=== PATIENT | female | born 1945 | race Caucasian/White ===

== ENCOUNTER → 2016-10-25 | Outpatient (CLI) | payer BC ==
--- NOTE | 2016-10-26 12:32 | MAMMOGRAPHY REPORT ---
BILATERAL DIGITAL SCREENING MAMMOGRAM TOMOSYNTHESIS WITH CAD: 10/25/2016 CLINICAL HISTORY: Routine screening. Patient has no complaints. TECHNIQUE: Breast tomosynthesis in addition to standard 2D mammography was performed. Current study was also evaluated with a Computer Aided Detection (CAD) system. COMPARISON: Comparison is made to exams dated: 10/22/2015 mammogram, 10/21/2014 mammogram, 10/18/2013 ma mmogram, 10/13/2011 mammogram, 10/16/2012 mammogram, and 11/12/2010 ultrasound - [facility]. BREAST COMPOSITION: There are scattered areas of fibroglandular density in both breasts. FINDINGS: There are scattered and grouped benign-appearing microcalcifications, stable in each breas t. There is a stable metallic biopsy marker in the 2:00 anterior left breast. No new suspicious ma ss, architectural distortion or cluster of microcalcifications is seen. IMPRESSION: ACR BI-RADS CATEGORY 1: NEGATIVE There is no mammographic evidence of malignancy. A 1 year screening mammogram is recommended. The p atient will receive written notification of the results. Approximately 10% of breast cancers are not detected with mammography. A negative mammographic repor t should not delay biopsy if a clinically suggestive mass is present. Amber Corrales M.D. ay/:10/25/2016 16:00:20 Metal Shaping Machine Operator: Joelle ULRICH(Ruben)(Bhupinder), [facility] letter sent: Normal 1/2 BI-RADS Code: ACR BI-RADS Category 1: Negative
== END | disposition home or self-care (01) ==
LOC: C.MAMM 09:48
PROVIDERS: ATTEND Family Medicine
DX: Z12.31 Encounter for screening mammogram for malignant neoplasm of breast (principal)

== ENCOUNTER → 2016-11-15 | Outpatient (CLI) | payer BC ==
[2016-11-15 13:14] LABS: CHOLESTEROL/HDL RATIO 3.6
== END | disposition home or self-care (01) ==
LOC: C.LABMFLN 09:31
PROVIDERS: ATTEND Family Medicine
DX: E78.5 Hyperlipidemia, unspecified (principal)

== ENCOUNTER → 2017-10-27 | Outpatient (CLI) | payer BC ==
--- NOTE | 2017-10-27 15:27 | MAMMOGRAPHY REPORT ---
BILATERAL DIGITAL SCREENING MAMMOGRAM TOMOSYNTHESIS WITH CAD: 10/27/2017 CLINICAL HISTORY: Routine screening. Patient has no complaints. TECHNIQUE: Breast tomosynthesis in addition to standard 2D mammography was performed. Current study was also evaluated with a Computer Aided Detection (CAD) system. COMPARISON: Comparison is made to exams dated: 10/25/2016 mammogram, 10/22/2015 mammogram, 10/21/2014 mamm ogram, 10/18/2013 mammogram, 10/16/2012 mammogram, and 10/13/2011 mammogram - [facility] er. BREAST COMPOSITION: There are scattered areas of fibroglandular density in both breasts. FINDINGS: No suspicious masses, calcifications, or areas of architectural distortion are noted in ei ther breast. There has been no significant interval change compared to prior exams. Bilateral benign -appearing calcifications are not significantly changed. A biopsy marker clip is again noted within the left lateral anterior breast. IMPRESSION: ACR BI-RADS CATEGORY 2: BENIGN There is no mammographic evidence of malignancy. A 1 year screening mammogram is recommended. The pa tient will receive written notification of the results. Approximately 10% of breast cancers are not detected with mammography. A negative mammographic report should not delay biopsy if a clinically suggestive mass is present. Anjelica Laird M.D. ah/:10/27/2017 12:08:30 Turbo Electric Operator: Korina CASTANO)(M), [facility] letter sent: Normal 1/2 BI-RADS Code: ACR BI-RADS Category 2: Benign
== END | disposition home or self-care (01) ==
LOC: C.MAMM 10:03
PROVIDERS: ATTEND Family Medicine
DX: Z12.31 Encounter for screening mammogram for malignant neoplasm of breast (principal)

== ENCOUNTER 2024-05-24 09:18 | Inpatient (IN) ==
--- NOTE | 2024-05-03 15:45 | PAT Medication Instructions ---
Medication Instructions Date of Service May 03, 2024 Home Medications Medication Instructions Recorded rosuvastatin 20 mg tablet 20 mg PO QAM #90 tabs 09/19/23 carvedilol 25 mg tablet 25 mg PO BID #180 tabs 11/20/23 gabapentin 300 mg capsule 300 mg PO BID #60 caps 03/05/24 acetaminophen 500 mg tablet (Tylenol Extra Strength) 500 mg PO Q6H PRN Pain aspirin 81 mg capsule 81 mg PO BID rosuvastatin 20 mg tablet 20 mg PO QAM carvedilol 25 mg tablet 25 mg PO BID gabapentin 300 mg capsule 300 mg PO BID duloxetine 30 mg capsule,delayed release 30 mg PO QAM losartan 100 mg tablet 100 mg PO QAM ASK your prescriber and surgeon aspirin 81 mg capsule 81 mg PO BID DO NOT take the morning of surgery losartan 100 mg tablet 100 mg PO QAM Take morning of surgery With a small sip of water, OTHERWISE NOTHING TO EAT OR DRINK AFTER MIDNIGHT: acetaminophen 500 mg tablet (Tylenol Extra Strength) 500 mg PO Q6H PRN Pain (if needed) rosuvastatin 20 mg tablet 20 mg PO QAM carvedilol 25 mg tablet 25 mg PO BID gabapentin 300 mg capsule 300 mg PO BID duloxetine 30 mg capsule,delayed release 30 mg PO QAM Take evening before surgery acetaminophen 500 mg tablet (Tylenol Extra Strength) 500 mg PO Q6H PRN Pain (if needed) carvedilol 25 mg tablet 25 mg PO BID gabapentin 300 mg capsule 300 mg PO BID Other Notes If you have any questions please call us at [phone] or [phone] or [phone] or [phone]
--- NOTE | 2024-05-16 09:18 | Anesthesiology Consultation ---
Date of Service May 16, 2024 Assessment & Plan (1) Encounter for pre-operative examination: - cardiology clearance 05/09/24 [place]: "...Nonischemic cardiomyopathy: Secondary workup unremarkable (coronary angiography, TSH, iron studies, SPEP/UPEP, OTONIEL, Lyme). Euvolemic on exam. NYHA class I. LV systolic function has improved with beta-jean paul and ARB. Continue current regimen. OTONIEL inhibitor discontinued due to cough. Does not qualify for ICD for primary prevention. Recommended low- sodium diet. Monitor for signs and symptoms of heart failure which were discussed with her. Repeat echo in approximately 6 months. CAD: Minimal nonobstructive CAD in March 2023. No angina. Risk factor modification. Continue aspirin. Continue high intensity statin therapy. Mitral regurgitation: Nonsevere. Asymptomatic. Repeat echo in approximately 6 months...LBBB: Discussed diagnosis. May be responsible for her reduced LV systolic function...Follow-up in approximately 6 months or sooner for questions or concerns. Acceptable cardiovascular risk for upcoming surgery. No further testing necessary at this time from a cardiology perspective. Recommend caution with IV fluids and monitor for hypervolemia..." Chart Review Chart Review: Acceptable Risk for Surgery and Patient seen in Pre Admission Testing Teaching & Discussion Pre-Anesthesia Teaching/Discussion Notes: Instructed NPO after midnight before surgery, except medications with 15 cc of water. Medication instructions provided according to the PAT guidelines. History Surgery Operation Date: 05/24/24 11:15 Proposed Procedures p L4-L5 Lumbar Decompression and Fusion - Clarence Buckner DO Height/Weight Height: 5 ft 2 in Weight: 70.4 kg Allergies Allergy/AdvReac Type Severity Reaction Status Date / Time adhesive tape AdvReac Mild Rash Verified 05/09/24 14:43 Medications Home Medications Medication Instructions Recorded Confirmed Last Taken acetaminophen 500 mg tablet 500 mg PO Q6H PRN Pain 02/09/22 05/09/24 06/19/23 08:00 (Tylenol Extra Strength) aspirin 81 mg capsule 81 mg PO BID 05/09/23 05/09/24 06/19/23 08:00 rosuvastatin 20 mg tablet 20 mg PO QAM #90 tabs 09/19/23 05/09/24 Unknown carvedilol 25 mg tablet 25 mg PO BID #180 tabs 11/20/23 05/09/24 Unknown gabapentin 300 mg capsule 300 mg PO BID #60 caps 03/05/24 05/09/24 Unknown duloxetine 30 mg capsule,delayed 30 mg PO QAM 05/03/24 05/09/24 Unknown release losartan 100 mg tablet 100 mg PO QAM 05/03/24 05/09/24 Unknown Past Medical History Medical History (Updated 05/16/24 @ 13:57 by Remedios Recinos PA-C) CAD (coronary artery disease) minimal non-obstructive on 03/2023 cath Cervical radiculopathy Hearing deficit BL ENRIQUEZ Bilateral hearing aids Herniated lumbar intervertebral disc History of asthma denies issues since childhood History of hypertension controlled, stable per pt Hx of basal cell carcinoma on back Hyperlipidemia LBBB (left bundle branch block) follows with [place] [facility] Mitral regurgitation Nonischemic cardiomyopathy (~04/17/23) EF 40-45%, follows with [place] [facility] Osteopenia Paresthesia of hand, bilateral Spinal stenosis Lumbar and cervical Patient denies h/o stroke, seizures, heart attack, DM, blood clots/DVTs or blood transfusions. Exercise / Class Metabolic Activity III < 4 Walking/Shop/Light housework (ambulates with cane, denies chest discomfort or shortness of breath with usual activities) Past Family History Family History Brother Prostate cancer Depression Father Prostate cancer Hypertension Mother Ovarian cancer Other No family history of adverse response to anesthesia Past Surgical History Surgical History History of basal cell carcinoma (BCC) excision History of cataract surgery (09/2022) b/l History of wisdom tooth extraction Hx of breast biopsy L, benign Hx of colonoscopy (09/2015) Hx of tonsillectomy S/P cardiac catheterization (03/2023) [facility], had previous to cervical surgery, no stents, will see alejandro 05/09/24 S/P cervical spinal fusion (~06/20/23) Anterior cervical decompression and fusion at C4-5 and C5-6 from (06/20/23) full rom Past Anesthesia History No Hx of Anesthesia Complications and No Family Hx of Anesthesia Complications History of PONV No Hx of PONV and No Hx of Motion Sickness Social History Smoking Status: Former smoker Do You Dip or Chew Tobacco: No Smoking End Date: quit in her teens Hx Alcohol Use: Yes Alcohol type: wine alcohol intake frequency: a few times a week Hx Substance Use: No substance use type: does not use Review of Systems Patient denies chest pain, shortness of breath, dyspnea on exertion, snoring, witnessed apneas, reflux, fever, chills, cough, wheezing, or palpitations. Physical Exam Vital Signs Vitals BP 108/67 P 72 TEMP 97.7 SP02 94% on RA RESP 18 Physical Patient resting comfortably in chair in no acute distress, alert and oriented, responding appropriately throughout visit Full cervical extension range of motion without pain TMD 3.5 finger breadths Mallampati Score 3 Dentition: intact, denies chipped or loose teeth, caps/crowns, implants or bridges Lungs: normal respiratory effort. Good air movement, clear throughout to auscultation, no adventitious breath sounds Cardiac: regular rate and rhythm, no murmurs noted Carotid arteries: negative bruit bilat Lab Results Anesthesia Preop Results Results Anesthesia Widget: WBC 3.73 K/ul (4.8-10.8) L 05/16/24 Hgb 13.1 g/dl (12.0-16.0) 05/16/24 Hct 38.8 % (37.0-47.0) 05/16/24 Plt 170 K/uL (130-400) 05/16/24 Na 142 mmol/L (136-145) 05/16/24 K 3.8 mmol/L (3.5-5.1) 05/16/24 Cl 110 mmol/L (98-107) H 05/16/24 CO2 27 mmol/L (21-32) 05/16/24 BUN 14 mg/dl (6-23) 05/16/24 Creat 0.63 mg/dl (0.6-1.2) 05/16/24 Glucose Level 99 mg/dl (70-99(Fasting)) 05/16/24 PT 10.7 Seconds (9.0-12.0) 05/16/24 PTT 24 Seconds (21-31) 05/16/24 INR 1.0 (0.9-1.1) 05/16/24 Urine Color Dark Yellow 05/16/24 Urine Appearance Turbid (Clear) A 05/16/24 Urine pH 5.0 (4.5-7.5) 05/16/24 Urine Specific [place] 1.041 (1.000-1.030) H 05/16/24 Urine Protein Trace (Negative) H 05/16/24 Urine Glucose (UA) Negative (Negative) 05/16/24 Urine Ketones Trace (Negative) H 05/16/24 Urine Blood Negative (Negative) 05/16/24 Urine Nitrite Negative (Negative) 05/16/24 Urine Bilirubin Negative (Negative) 05/16/24 Urine Urobilinogen Negative (Negative) 05/16/24 Urine Leukocyte Esterase Negative (Negative) 05/16/24 Urine WBC (Auto) 0-5 /hpf (0-5) 05/16/24 Urine RBC (Auto) 3-5 /hpf (0-2) H 05/16/24 Urine Hyaline Casts (Auto) 0-2 /lpf (0-2) 05/16/24 Urine Epithelial Cells (Auto) >20 /hpf (0-2) H 05/16/24 Urine Bacteria (Auto) 2+ (None Seen) H 05/16/24 Urine Amorphous Sediment Present (None Prsent) A 05/16/24 Blood Type A Positive 05/16/24 Antibody Screen NEGATIVE 05/16/24 Testing Laboratory Results Surgeon's office made aware of abnormal UA. Electrocardiogram Date: 05/16/24 NSR, rate 63 bpm LBBB Chest X-Ray Date: 05/16/24 No acute process. Echocardiogram Date: 01/05/24 EF 40-45% Global hypokinesis Mild cLVH Septal motion consistent with BBB Mild LA dilation Cardiac Catheterization Date: 04/17/23 1. Left main: No significant CAD. 2. Left anterior descending: Luminal irregularities within the proximal LAD. Small D1. Large D2. 3. Circumflex: Large caliber vessel. Proximal circumflex 10 to 20%. Large branching OM1. 4. Right coronary artery: RCA is dominant. Luminal irregularities within the mid RCA. PDA and PL without significant CAD. 1. Minimal nonobstructive CAD. 2. Nonischemic cardiomyopathy. 3. No aortic stenosis. Cervical Spine Date: 09/04/23 1. Status post C4-C5 and C5-C6 discectomies with interbody fusion. No significant residual central canal stenosis at these levels. 2. Moderate to severe multilevel neural foraminal stenosis, as detailed above. This is predominantly due to facet arthrosis and uncovertebral hypertrophy. 3. No change in mild increased T2 signal within the cord at the C4 level which represents myelomalacia. Unchanged appearance of the cord.
[2024-05-24] MEDS ORDERED: PROPOFOL IV EMULSION 10 MG/ML 20 ML VIAL IV ONE (10:47)
[2024-05-24] MEDS ORDERED: LIDOCAINE 2% 2 ML VIAL/AMP(20MG/ML) INFIL ONE ×2 (10:48→10:49)
[2024-05-24] MEDS ORDERED: ROCURONIUM BROMIDE 10 MG/ML 5 ML VIAL IV ONE ×2 (10:48→12:04)
[2024-05-24] MEDS: CeleBREX 200 MG CAP PO SCH (10:50)
[2024-05-24] MEDS: LR 60ML/HR IV SCH (10:51)
[2024-05-24] MEDS: LR 15ML/HR IV SCH (10:51)
[2024-05-24] MEDS: ACETAMINOPHEN 500 MG TAB PO SCH (10:51)
[2024-05-24] MEDS ORDERED: fentaNYL citrate PF 100 MCG/2 ML VIAL ONE ×2 (10:51→12:08)
[2024-05-24] MEDS ORDERED: MIDAZOLAM HCL 1 MG/ML 2ML VIAL ONE (10:51)
[2024-05-24] MEDS: GABAPENTIN 300 MG CAP PO SCH ×2 (10:51→21:28)
--- NOTE | 2024-05-24 10:54 | History & Physical Bridge Note ---
Date of Service May 24, 2024 History & Physical Bridge Note I have examined the patient, reviewed the History & Physical and in the interval since the performance of the History & Physical I have noted the following changes of clinical significance: no changes noted
--- NOTE | 2024-05-24 10:55 | History & Physical Report ---
Date of Service May 24, 2024 Assessment & Plan (1) Neurogenic claudication due to lumbar spinal stenosis: Plan: L4-L5 decompression and fusion History of Present Illness Chief Complaint: Back and leg pain Primary Care Provider: NEVILLE Fisher This is a 70-year-old female presents for chronic persistent back and leg pain after failing course of nonoperative care she is here for surgical invention. Allergies Allergy/AdvReac Type Severity Reaction Status Date / Time adhesive tape AdvReac Mild Rash Verified 05/24/24 10:14 Home Medications Medication Instructions Recorded Confirmed Type acetaminophen 500 mg tablet 500 mg PO Q6H PRN Pain 02/09/22 05/24/24 History (Tylenol Extra Strength) aspirin 81 mg capsule 81 mg PO BID 05/09/23 05/24/24 History rosuvastatin 20 mg tablet 20 mg PO QAM #90 tabs 09/19/23 05/24/24 Rx carvedilol 25 mg tablet 25 mg PO BID #180 tabs 11/20/23 05/24/24 Rx losartan 100 mg tablet 100 mg PO QAM 05/03/24 05/24/24 History duloxetine 30 mg capsule,delayed 30 mg PO QAM #90 caps 05/21/24 05/24/24 Rx release gabapentin 300 mg capsule 300 mg PO BID #60 caps 05/21/24 05/24/24 Rx calcium phosphate,dibasic 77 500 tab PO BID 05/24/24 05/24/24 History mg-vitamin D3 400 unit tablet Past Med/Surg History Problem List (Updated 05/24/24 @ 10:54 by Clarence Buckner DO) Neurogenic claudication due to lumbar spinal stenosis Encounter for pre-operative examination Benign essential hypertension Mitral regurgitation Low back pain radiating to left lower extremity S/P cardiac catheterization (~04/17/23) no stents Degenerative cervical spinal stenosis Carpal tunnel syndrome of right wrist Stenosis, spinal, lumbar Vitamin B12 deficiency Herniated lumbar intervertebral disc Left leg weakness chronic, denies change or worsening Cervical radiculopathy Paresthesia of hand, bilateral (Acute) Due to cervical issues Allergic rhinitis Hyperlipidemia Asthma Osteopenia Adenomatous polyp of colon Medical History (Updated 05/24/24 @ 10:54 by Clarence Buckner DO) CAD (coronary artery disease) minimal non-obstructive on 03/2023 cath LBBB (left bundle branch block) follows with [place] [facility] Nonischemic cardiomyopathy (~04/17/23) EF 40-45%, follows with [place] [facility] Cervical radiculopathy History of asthma denies issues since childhood Mitral regurgitation Herniated lumbar intervertebral disc Paresthesia of hand, bilateral Osteopenia Hyperlipidemia Hx of basal cell carcinoma on back Spinal stenosis Lumbar and cervical Hearing deficit BL ENRIQUEZ Bilateral hearing aids History of hypertension controlled, stable per pt Surgical History History of basal cell carcinoma (BCC) excision S/P cardiac catheterization (03/2023) [facility], had previous to cervical surgery, no stents, will see alejandro 05/09/24 History of wisdom tooth extraction S/P cervical spinal fusion (~06/20/23) Anterior cervical decompression and fusion at C4-5 and C5-6 from (06/20/23) full rom History of cataract surgery (09/2022) b/l Hx of tonsillectomy Hx of colonoscopy (09/2015) Hx of breast biopsy L, benign Family History Brother Prostate cancer Depression Father Prostate cancer Hypertension Mother Ovarian cancer Other No family history of adverse response to anesthesia Social History Smoking Status: Former smoker Tobacco Type: Cigarettes Smoking End Date: quit in her teens; Second Hand Exposure: No; Do You Dip or Chew Tobacco: No; Tobacco Cessation Education Requested by Patient: No Hx Alcohol Use: Yes Alcohol type: wine Alcohol Intake Frequency Comment: socially Hx Substance Use: No Preferred Language: Japanese Communication Ability: Effective Retirement Administrator Required: No Beliefs That Will Affect Care: None marital status: Current Living Situation: Alone Other Information That Helps Us Care for You: No Feels Safe at Home: Yes Safety Concerns: Feels Safe At This Time Childhood Exposure to Second-Hand Smoke: No Dental Care, Regularly: Yes Physical Activity Frequency: Does not Exercise Assistive Devices: Cane, Glasses and Hearing Aid - Bilateral Physical Exam Physical Exam: Patient is alert and oriented heart regular in rhythm Lungs clear Results & Data Results & Data Vital Signs (Past 12 Hours) Vital Signs Temp Pulse Resp BP Pulse Ox O2 Del Method 05/24/24 10:23 36.7 C 66 20 139/66 95 Room Air
[2024-05-24] MEDS: ceFAZolin 2000MG 2,000 MG/15 ML SYR IV SCH (11:40)
[2024-05-24] MEDS ORDERED: DEXAMETHASONE SOD INJ 4 MG/ML VIAL ONE ×4 (12:10→12:11)
[2024-05-24] MEDS ORDERED: ONDANSETRON INJ 2 MG/ML 2 ML VIAL ONE (12:11)
[2024-05-24] MEDS ORDERED: ePHEDrine sulfate 50 MG/ML AMP ONE (12:17)
[2024-05-24] MEDS: BUPIVACAINE/EPINEPHRINE 0.25% 1:200,000 30 ML VIAL ONE (12:21)
[2024-05-24] MEDS: FLOSEAL HEMOSTATIC MATRIX 10ML TOP ONE (13:04)
[2024-05-24] MEDS: ceFAZolin 330 MG/ML 1 GM VIAL ONE (13:05)
--- NOTE | 2024-05-24 13:17 | Operative Report ---
Post Operative Report Pre & Post Diagnosis Operation Date: 05/24/24 11:15 Pre-Op Diagnosis: Spinal Stenosis Lumbar Region with Neurogenic Claudication Foraminal extraforaminal disc herniation L4-5 Post-Op Diagnosis: Same I identified the patient and participated in the time-out.: Yes Procedure Operation Date: 05/24/24 11:15 Actual Procedures Lumbar decompression bilateral medial facetectomies and foraminotomies L3-L4 L4- 5. #2 posterior spinal fusion L4-L5. #3 placed posterior instrumentation L4- L5. #4 interbody fusion L4-L5 #5 placement of Spira 13 x 26 mm cage x 2 at L4-5 per #6 placement locally harvested morselized autograft posterior gutters. #7 placement for final sponge combined with Koros in the posterior lateral gutters and os design bone graft in the interbody space. #8 placement of versa wrap over the exposed dura. Surgeon Clarence Buckner, Cardiology Tech Sinan Messina Estimated Blood Loss 150 Findings Consistent with Post-Op Diagnosis Specimens None Indications This is a 78-year-old female presents problems diagnosis of failed course of nonoperative care she is here for surgical invention. Description of Procedure Patient was met with identified informed consent obtained. Patient was then taken to the operative suite underwent ablation placed in a prone position on the Sadiq table on top of the Oswald frame. All bony promises well-padded eyes inspected to ensure no external precipice spinal. This point the lumbar spine was prepped and draped no sterile fashion. Sharp dissection with the assistance of Bovie cautery performed down to and exposing the lamina transverse processes of L4-L5. From caudal to cephalad fashion complete laminectomy of L4 was performed including bilateral medial facetectomies and foraminotomies as well as addressing the extraforaminal foraminal disc on the left. Then performed partial laminectomy of L3 including bilateral medial facetectomies to address all severe subarticular stenosis. Pedicle screws were then placed in L4-L5 bilaterally with assistance of fluoroscopy and proper size dalila placed. By way of a transforaminal approach on the right a discectomy of L4-L5 was performed endplates guarded to subcortical bleeding bone and a 13 x 26 mm spiral cage filled with os design tapped in position. Then proceeded to the left transforaminal region. Again discectomy performed endplates corrected to subcortical bleeding bone and a second 13 x 26 mm spiral cage filled with os designed tapped into position. The rods then compressed locked in final position bilaterally. The transverse processes of L4-5 burred to subcortical bleeding bone. Infuse collagen sponge combined with Koros and local autograft placed in the posterior lateral gutters. Versa wrap placed over the exposed dura. 15 round FOSTER drain inserted. The incision was then closed with 1 Vicryl to fascia 2-0 Vicryl subcutaneously and 4 Monocryl for final skin closure. Steri-Strips sterile dressing placed. Patient waken taken to PACU stable condition. Please note spinal cord monitoring was utilized at the procedure no changes noted. Lastly Sinan Messina was present at the entire procedure and on the patient positioning complex portions of the surgery and final skin closure. Im ordering 20 grams of Triple [place] Collagen Powder ([employer] [id number]) to treat an incision wound that was caused by a spine procedure. The incision is approximately 2 cm(W) x 4 cm(L) into the joint (D) in size and is a full thickness wound. Triple [place] collagen comes in 1 gram packets so 20 packets were ordered. Given the size of the wound, with light to moderate exudate I chose to order a 20 day supply. The patient will be provided instructions for proper application of the collagen wound kit. The patient will be asked to apply the collagen powder daily and then cover it with sterile dressings dispensed. Collagen was selected as I expect the collagen to attract monocytes and fibroblasts, act as a sacrificial substrate for MMPs, and ultimately proved a matrix for tissue and vessel growth. The collagen will act as a primary dressing in this scenario. It is medically necessary for proper healing of these wounds to improve bioavailability and contact with each wound surface, this is also to help prevent infection of wounds and promote healing ultimately leading to a better healing outcome and limit the risk of infection. I attest to the content of the Intraoperative Record and any orders documented therein. Any exceptions are noted below.
[2024-05-24] MEDS ORDERED: SUGAMMADEX SODIUM 200 MG/2 ML VIAL IV ONE (13:18)
--- NOTE | 2024-05-24 13:50 | Fluoroscopy Report ---
FL lumbar spine 2-3V CLINICAL HISTORY: L4-L5 Lumbar Decompression/Fusion COMPARISON STUDY: None. FLUOROSCOPY TIME: 13 seconds. FLUOROSCOPY IMAGES: 2 Ka,r: 8.7 mGy FINDINGS: Posterior decompression fusion at L4-5 with pedicle screws and rods. The hardware appears i ntact. Disc spacers are in place. IMPRESSION: Fluoroscopic assistance as above. ACT 112: Negative or not required by law. Electronically signed by: Gaurav Briggs M.D. 05/24/2024 1:48 PM
[2024-05-24] MEDS ORDERED: ATROPINE SULFATE 0.1 MG/ML 10ML SYR IV PRN (13:55)
[2024-05-24] MEDS ORDERED: ePHEDrine sulfate 50 MG/ML AMP IV PRN (13:55)
[2024-05-24] MEDS ORDERED: HYDROmorphone INJ 1 MG/ML SYRINGE IV PRN ×2 (13:55→14:34)
[2024-05-24] MEDS ORDERED: ONDANSETRON INJ 2 MG/ML 2 ML VIAL IV PRN ×2 (13:55→14:34)
[2024-05-24] MEDS ORDERED: fentaNYL citrate PF 100 MCG/2 ML VIAL IV PRN (13:55)
[2024-05-24] MEDS ORDERED: diphenhydrAMINE Capsule 25 MG CAP PO PRN (14:34)
[2024-05-24] MEDS ORDERED: METOCLOPRAMIDE HCL INJ 5 MG/ML 2 ML VIAL IV PRN (14:34)
[2024-05-24] MEDS ORDERED: NALOXONE HCL 0.4 MG/1 ML VIAL/CARP IV PRN (14:34)
[2024-05-24] MEDS ORDERED: hydrOXYzine HCl 25 MG TAB PO PRN (14:34)
[2024-05-24] MEDS ORDERED: ONDANSETRON 4 MG OD TAB PO PRN (14:34)
[2024-05-24] MEDS ORDERED: ALUMINUM/MAGNESIUM SUSP 30 ML UDC PO PRN (14:34)
[2024-05-24] MEDS ORDERED: oxyCODONE HCL IR 5 MG TAB (IMMEDIATE RELEASE) PO PRN (14:34)
[2024-05-24] MEDS ORDERED: DO NOT ADMINISTER PNEUMOCOCCAL VACCINE PRN (14:34)
[2024-05-24] MEDS ORDERED: traMADol HCL 50 MG TABLET PO PRN (14:34)
[2024-05-24] MEDS ORDERED: bisacodyL 10 MG SUPP PR PRN (14:34)
[2024-05-24] MEDS ORDERED: MAGNESIUM HYDROXIDE SUSP 30 ML UDC PO PRN (14:34)
[2024-05-24] MEDS ORDERED: FAMOTIDINE 20 MG TAB PO PRN (14:34)
[2024-05-24] MEDS ORDERED: LORazepam 0.5 MG TAB PO PRN (14:34)
[2024-05-24] MEDS ORDERED: LORazepam 2 MG/1 ML VIAL IV PRN (14:34)
[2024-05-24] MEDS ORDERED: DO NOT ADMINISTER FLU VACCINE PRN (14:34)
[2024-05-24] MEDS ORDERED: PROMETHAZINE 12.5 MG/50.5 ML BAG IV PRN (14:34)
[2024-05-24] MEDS ORDERED: HYDROmorphone INJ 0.5 MG/0.5 ML SYR IV PRN (14:34)
[2024-05-24] MEDS ORDERED: ACETAMINOPHEN 1,000 MG/100 ML VIAL IV PRN (14:34)
[2024-05-24] MEDS ORDERED: SOD PHOSPHATE/SOD BIPHOSPHATE ENEMA 132 ML BTL PR PRN (14:34)
--- NOTE | 2024-05-24 15:30 | Anesthesiology Progress Note ---
Date of Service May 24, 2024 Anesthesia Post Procedure Vital Signs Vital Signs: Temp Pulse Pulse Resp BP Pulse Ox O2 Del Method 05/24/24 14:50 97.5 F L 65 16 101/56 L 96 Room Air 05/24/24 14:20 63 12 103/48 L 95 Room Air 05/24/24 14:10 97.2 F L 67 13 107/55 L 96 Room Air 05/24/24 14:00 70 14 115/58 L 98 Oxymask 05/24/24 13:50 69 13 95/54 L 98 Oxymask 05/24/24 13:41 97.2 F L 73 15 127/57 L 95 Oxymask 05/24/24 10:23 98.1 F 66 20 139/66 95 Room Air O2 Flow Rate 05/24/24 14:50 05/24/24 14:20 05/24/24 14:10 05/24/24 14:00 7 05/24/24 13:50 15 05/24/24 13:41 15 05/24/24 10:23 Transfer of Care Handoff Completed per policy Notes Mental Status: alert / awake / arousable and participated in evaluation Patient Amnestic to Procedure: Yes Nausea / Vomiting: adequately controlled Pain: adequately controlled Airway Patency, RR, SpO2: stable & adequate BP & HR: stable & adequate Hydration State: stable & adequate Anesthetic Complications: no major complications apparent and Pt Satisfied with anesthetic care
--- NOTE | 2024-05-24 16:11 | History & Physical Report ---
Date of Service May 24, 2024 Assessment & Plan Admission and Anticipated Discharge Date Admission Date: May 24, 2024 History of Present Illness Chief Complaint: Postop medical management Primary Care Provider: NEVILLE Fisher Angle is a 78-year-old female with a past medical history significant for hypertension, nonobstructive coronary artery disease, nonischemic cardiomyopathy (LVEF of 40-45%), dyslipidemia, and chronic back pain who presented to the [facility] OR on 05/24/2024 for scheduled L4-L5 lumbar decompression and fusion with Dr. Buckner. Per the operative report, EBL was listed as 150 cc, anesthesia type and intraoperative complications were not listed. Allergies Allergy/AdvReac Type Severity Reaction Status Date / Time adhesive tape AdvReac Mild Rash Verified 05/24/24 10:14 Home Medications Medication Instructions Recorded Confirmed Type acetaminophen 500 mg tablet 500 mg PO Q6H PRN Pain 02/09/22 05/24/24 History (Tylenol Extra Strength) aspirin 81 mg capsule 81 mg PO BID 05/09/23 05/24/24 History rosuvastatin 20 mg tablet 20 mg PO QAM #90 tabs 09/19/23 05/24/24 Rx carvedilol 25 mg tablet 25 mg PO BID #180 tabs 11/20/23 05/24/24 Rx losartan 100 mg tablet 100 mg PO QAM 05/03/24 05/24/24 History duloxetine 30 mg capsule,delayed 30 mg PO QAM #90 caps 05/21/24 05/24/24 Rx release gabapentin 300 mg capsule 300 mg PO BID #60 caps 05/21/24 05/24/24 Rx calcium phosphate,dibasic 77 500 tab PO BID 05/24/24 05/24/24 History mg-vitamin D3 400 unit tablet Past Med/Surg History Problem List (Updated 05/24/24 @ 10:54 by Clarence Buckner DO) Neurogenic claudication due to lumbar spinal stenosis Encounter for pre-operative examination Benign essential hypertension Mitral regurgitation Low back pain radiating to left lower extremity S/P cardiac catheterization (~04/17/23) no stents Degenerative cervical spinal stenosis Carpal tunnel syndrome of right wrist Stenosis, spinal, lumbar Vitamin B12 deficiency Herniated lumbar intervertebral disc Left leg weakness chronic, denies change or worsening Cervical radiculopathy Paresthesia of hand, bilateral (Acute) Due to cervical issues Allergic rhinitis Hyperlipidemia Asthma Osteopenia Adenomatous polyp of colon Medical History (Updated 05/24/24 @ 10:54 by Clarence Buckner DO) CAD (coronary artery disease) minimal non-obstructive on 03/2023 cath LBBB (left bundle branch block) follows with [place] [facility] Nonischemic cardiomyopathy (~04/17/23) EF 40-45%, follows with [place] [facility] Cervical radiculopathy History of asthma denies issues since childhood Mitral regurgitation Herniated lumbar intervertebral disc Paresthesia of hand, bilateral Osteopenia Hyperlipidemia Hx of basal cell carcinoma on back Spinal stenosis Lumbar and cervical Hearing deficit BL ENRIQUEZ Bilateral hearing aids History of hypertension controlled, stable per pt Surgical History History of basal cell carcinoma (BCC) excision S/P cardiac catheterization (03/2023) [facility], had previous to cervical surgery, no stents, will see alejandro 05/09/24 History of wisdom tooth extraction S/P cervical spinal fusion (~06/20/23) Anterior cervical decompression and fusion at C4-5 and C5-6 from (06/20/23) full rom History of cataract surgery (09/2022) b/l Hx of tonsillectomy Hx of colonoscopy (09/2015) Hx of breast biopsy L, benign Family History Brother Prostate cancer Depression Father Prostate cancer Hypertension Mother Ovarian cancer Other No family history of adverse response to anesthesia Social History Smoking Status: Former smoker Tobacco Type: Cigarettes Smoking End Date: quit in her teens; Second Hand Exposure: No; Do You Dip or Chew Tobacco: No; Tobacco Cessation Education Requested by Patient: No Hx Alcohol Use: Yes Alcohol type: wine Alcohol Intake Frequency Comment: socially Hx Substance Use: No Preferred Language: Belgian Communication Ability: Effective [employer] Layup Line Back Feeder Required: No Beliefs That Will Affect Care: None marital status: Current Living Situation: Alone Other Information That Helps Us Care for You: No Feels Safe at Home: Yes Safety Concerns: Feels Safe At This Time Childhood Exposure to Second-Hand Smoke: No Dental Care, Regularly: Yes Physical Activity Frequency: Does not Exercise Assistive Devices: Cane Results & Data Results & Data Vital Signs (Past 12 Hours) Vital Signs Temp Pulse Pulse Resp BP Pulse Ox O2 Del Method 05/24/24 14:50 36.4 C L 65 16 101/56 L 96 Room Air 05/24/24 14:20 63 12 103/48 L 95 Room Air 05/24/24 14:10 36.2 C L 67 13 107/55 L 96 Room Air 05/24/24 14:00 70 14 115/58 L 98 Oxymask 05/24/24 13:50 69 13 95/54 L 98 Oxymask 05/24/24 13:41 36.2 C L 73 15 127/57 L 95 Oxymask 05/24/24 10:23 36.7 C 66 20 139/66 95 Room Air O2 Flow Rate 05/24/24 14:50 05/24/24 14:20 05/24/24 14:10 05/24/24 14:00 7 05/24/24 13:50 15 05/24/24 13:41 15 05/24/24 10:23 Code Status & VTE Plan VTE Prophylaxis Plan VTE Prophylaxis will be ordered: Yes PG Care Time/CCT Total # of Minutes Spent Total Time Spent with Patient: Total time spent is greater than 50% in coordination of care (as documented) at patient's floor/unit and/or counseling patient: Coding
--- NOTE | 2024-05-24 16:35 | Hospitalist Consultation ---
Date of Consultation May 24, 2024 Assessment & Plan (1) Status post lumbar spinal fusion: Patient is currently postop day #0 status post L4-L5 lumbar decompression and fusion with Dr. Buckner Patient is currently stable and nontoxic-appearing if improved symptoms since her procedure Pain control, perioperative antibiotics, DVT prophylaxis per the primary team Will change the IV fluid orders to a total of 1 L due to patient being stable, able to eat/drink, and have a history of nonischemic cardiomyopathy with LVEF of 40-45% Agree with a.m. labs tomorrow, we will review Agree with resuming patient's home aspirin tonight as long as she is stable from a bleeding perspective Please reach out with any further questions or concerns, medicine will continue to follow (2) History of hypertension: Patient was noted to be mildly hypotensive after her procedure at 95/54 Currently at 109/67, patient has been asymptomatic Suspect this is due to patient taking her a.m. doses of both carvedilol and losartan in addition to anesthesia and blood loss during her procedure Holding home carvedilol and losartan for now until blood pressure stabilizes (3) CAD (coronary artery disease): No recent chest pain Agree with resuming home aspirin this evening as long as she stable from a bleeding perspective Will hold home carvedilol for now until blood pressure has stabilized as it has been soft since the procedure Continue statin (4) Nonischemic cardiomyopathy: Currently euvolemic on exam Adjusted patient's IV fluids to stop after a total of 1 L to avoid with her history of mildly reduced left ventricular ejection Monitor daily fluid status Plan The patient was discussed with Dr. Hendrickson at the time of the consult Supervising Physician Co-Signing Physician Notes I personally saw and examined the patient. I verified all madera points and agree with Karl Heaton PA-C with the following exceptions and/or additions: 78 year old POD#0 s/p lumbar spinal decompression. Reports significant improvement in symptoms following surgery already with improved radicular pains. O/E HS RRR, no murmurs, Chest CTAB, Abdo SNT A/P VTE/Pain/Bowel management by primary orthopedic team HTN, non ischemic cardiomyopathy - agree with stopping IV fluids after 1L. BP ok to restart her carvedilol as stopping will cause rebound tachycardia. Will hold losartan given her low BP History of Present Illness Reason for Consultation: Postoperative medical management Requesting Physician: Clarence Buckner DO Attending Physician: Dr. Salomón Hendrickson History of Present Illness Angle is a 78-year-old female with a past medical history significant for hypertension, nonobstructive coronary artery disease, nonischemic cardiomyopathy (LVEF of 40-45%), dyslipidemia, and chronic back pain who presented to the [facility] OR on 05/24/2024 for scheduled L4-L5 lumbar decompression and fusion with Dr. Buckner. Per the operative report, EBL was listed as 150 cc, anesthesia type and intraoperative complications were not listed. Patient was sitting in bed in no acute distress at the time of exam. States she feels "great" following her procedure. Her chronic low back/left lower extremity pain is currently resolved. Denies new weakness or paresthesias in the lower extremities. No fever/chills, chest pain, shortness of breath, abdominal pain, nausea/vomiting, dysuria/hematuria, melena, lower extremity swelling. Patient confirms she did take her a.m. medications including her carvedilol and losartan. Please refer to Dr. Hendrickson's attestation for any changes to the treatment plan Allergies Allergy/AdvReac Type Severity Reaction Status Date / Time adhesive tape AdvReac Mild Rash Verified 05/24/24 10:14 Home Medications Medication Instructions Recorded Confirmed Type acetaminophen 500 mg tablet 500 mg PO Q6H PRN Pain 02/09/22 05/24/24 History (Tylenol Extra Strength) aspirin 81 mg capsule 81 mg PO BID 05/09/23 05/24/24 History rosuvastatin 20 mg tablet 20 mg PO QAM #90 tabs 09/19/23 05/24/24 Rx carvedilol 25 mg tablet 25 mg PO BID #180 tabs 11/20/23 05/24/24 Rx losartan 100 mg tablet 100 mg PO QAM 05/03/24 05/24/24 History duloxetine 30 mg capsule,delayed 30 mg PO QAM #90 caps 05/21/24 05/24/24 Rx release gabapentin 300 mg capsule 300 mg PO BID #60 caps 05/21/24 05/24/24 Rx calcium phosphate,dibasic 77 500 tab PO BID 05/24/24 05/24/24 History mg-vitamin D3 400 unit tablet oxycodone 5 mg tablet 5 mg PO Q6H PRN pain #20 tabs 05/25/24 Rx tramadol 50 mg tablet 50 mg PO Q6H PRN pain, moderate 05/25/24 Rx #30 tabs Patient History Medical History (Updated 05/24/24 @ 10:54 by Clarence Buckner DO) CAD (coronary artery disease) minimal non-obstructive on 03/2023 cath LBBB (left bundle branch block) follows with [place] [facility] Nonischemic cardiomyopathy (~04/17/23) EF 40-45%, follows with [place] [facility] Cervical radiculopathy History of asthma denies issues since childhood Mitral regurgitation Herniated lumbar intervertebral disc Paresthesia of hand, bilateral Osteopenia Hyperlipidemia Hx of basal cell carcinoma on back Spinal stenosis Lumbar and cervical Hearing deficit BL ENRIQUEZ Bilateral hearing aids History of hypertension controlled, stable per pt Surgical History (Updated 05/24/24 @ 16:29 by Karl Heaton PA-C) History of basal cell carcinoma (BCC) excision S/P cardiac catheterization (03/2023) [facility], had previous to cervical surgery, no stents, will see alejandro 05/09/24 History of wisdom tooth extraction S/P cervical spinal fusion (~06/20/23) Anterior cervical decompression and fusion at C4-5 and C5-6 from (06/20/23) full rom History of cataract surgery (09/2022) b/l Hx of tonsillectomy Hx of colonoscopy (09/2015) Hx of breast biopsy L, benign Family History Brother Prostate cancer Depression Father Prostate cancer Hypertension Mother Ovarian cancer Other No family history of adverse response to anesthesia Social History Smoking Status: Former smoker Tobacco Type: Cigarettes Smoking End Date: quit in her teens; Second Hand Exposure: No; Do You Dip or Chew Tobacco: No; Tobacco Cessation Education Requested by Patient: No Hx Alcohol Use: Yes Alcohol type: wine Alcohol Intake Frequency Comment: socially Hx Substance Use: No Preferred Language: Turkish Communication Ability: Effective Bank Vault Attendant Required: No Beliefs That Will Affect Care: None marital status: Current Living Situation: Alone Other Information That Helps Us Care for You: No Feels Safe at Home: Yes Safety Concerns: Feels Safe At This Time Childhood Exposure to Second-Hand Smoke: No Dental Care, Regularly: Yes Physical Activity Frequency: Does not Exercise Assistive Devices: Cane Physical Exam Physical Exam: Physical Exam: General: In no acute distress, stated age, well-nourished, good hygiene HEENT: Normocephalic, atraumatic, no scleral icterus, pupils around round, symmetrical, and reactive to light, moist mucus membranes, trachea midline, no thyromegaly Chest/Pulm: No respiratory distress, symmetrical chest expansion, clear breath sounds throughout Cardiac: RRR, no murmurs noted Abdomen: Negative for ascites and bruising, normoactive bowel sounds, soft, non-tender to palpation throughout Musculoskeletal: Symmetrical and without signs of acute trauma, upper and lower extremities with full ROM, lumbar surgical site is currently bandaged and without signs of bleeding, drain is in place with signs of malfunction Extremities: Radial, dorsalis pedis, and posterior tibial pulses are intact and symmetrical, no edema noted in the BL LE's Skin: Warm, dry, no rashes , lesions, or scars noted Neuro: Alert and oriented to person, place, month, year, and president, no focal defects, intact sensation motor function the bilateral lower extremities Psych: No acute distress, calm and cooperative during the exam Results & Data Results & Data Vital Signs (Past 12 Hours) Vital Signs Temp Pulse Pulse Resp BP Pulse Ox O2 Del Method 05/24/24 16:07 36.4 C L 88 18 109/67 94 Room Air 05/24/24 14:50 36.4 C L 65 16 101/56 L 96 Room Air 05/24/24 14:20 63 12 103/48 L 95 Room Air 05/24/24 14:10 36.2 C L 67 13 107/55 L 96 Room Air 05/24/24 14:00 70 14 115/58 L 98 Oxymask 05/24/24 13:50 69 13 95/54 L 98 Oxymask 05/24/24 13:41 36.2 C L 73 15 127/57 L 95 Oxymask 05/24/24 10:23 36.7 C 66 20 139/66 95 Room Air O2 Flow Rate 05/24/24 16:07 05/24/24 14:50 05/24/24 14:20 05/24/24 14:10 09/06/24 14:00 7 05/24/24 13:50 15 05/24/24 13:41 15 05/24/24 10:23 Diagnostic Findings Lumbar Spine X-Ray 05/24/24 07:00 FL lumbar spine 2-3V CLINICAL HISTORY: L4-L5 Lumbar Decompression/Fusion COMPARISON STUDY: None. FLUOROSCOPY TIME: 13 seconds. FLUOROSCOPY IMAGES: 2 Ka,r: 8.7 mGy FINDINGS: Posterior decompression fusion at L4-5 with pedicle screws and rods. The hardware appears intact. Disc spacers are in place. IMPRESSION: Fluoroscopic assistance as above. ACT 112: Negative or not required by law. Electronically signed by: Gaurav Briggs M.D. 05/24/2024 1:48 PM PG Care Time/CCT Total # of Minutes Spent Total Time Spent with Patient: Total time spent is greater than 50% in coordination of care (as documented) at patient's floor/unit and/or counseling patient: Coding [place] [address] IN/OBS CONSULT LVL 4,60M Patient Type Established Medical Decision Making High Complexity Diagnoses Status post lumbar spinal fusion Z98.1 History of hypertension Z86.79 Coronary artery disease involving kaibab coronary artery of kaibab heart without angina pectoris I25.10 Associated angina: without angina Coronary Disease-Associated Artery/Lesion type: [place] artery [place] vs. transplanted heart: kaibab heart Nonischemic cardiomyopathy I42.8 (3) CAD (coronary artery disease) Associated angina: without angina Coronary Disease-Associated Artery/Lesion type: [place] artery [place] vs. transplanted heart: kaibab heart Qualified Code(s): I25.10 - Atherosclerotic heart disease of kaibab coronary artery without angina pectoris
[2024-05-24] MEDS: ceFAZolin 1000MG 1,000 MG/7.5 ML SYR IV SCH (19:32)
[2024-05-24] MEDS: LACTATED RINGER'S 1,000 ML IV SCH (19:32)
[2024-05-24] MEDS: ASPIRIN 81 MG ECTAB PO SCH (21:28)
[2024-05-24] MEDS: carvediloL 25 MG TAB PO STA (21:28)
[2024-05-24] MEDS: CALCIUM 600MG + VIT D 400 IU TAB PO SCH (21:28)
[2024-05-24] MEDS: DOCUSATE SODIUM/SENNA 50/8.6MG TAB PO SCH (21:28)
[2024-05-25] MEDS: ACETAMINOPHEN 500 MG TAB PO PRN (04:05)
[2024-05-25] MEDS: POLYETHYLENE (MIRALAX) 17 GM PACK PO SCH (06:25)
[2024-05-25 06:32] LABS: Basophils # (auto) 0.01 K/uL (0.00-0.20); Basophils % (auto) 0.1 %; Hematocrit (blood only) 32.4 % (37.0-47.0); Immature Granulocytes # (auto) 0.05 K/uL (0.01-0.20); Immature Granulocytes % (auto) 0.5 %; Lymphocytes % (auto) 5.5 %; Mean Corpuscular Hemoglobin 30.6 pg (25.0-34.0); Mean Platelet Volume 10.2 fL (9.4-12.4); Monocytes # (auto) 0.55 K/uL (0.11-0.59); Monocytes % (auto) 5.1 %; Neutrophils # (auto) 9.62 K/uL (1.40-6.50); Neutrophils % (auto) 88.8 %; Platelet Count 160 K/uL (130-400); RDW Coefficient of Variation 12.4 % (11.5-14.5); RDW Standard Deviation 40.8 fL (36.4-46.3); White Blood Count 10.83 K/ul (4.8-10.8)
[2024-05-25 06:50] LABS: BUN Creatinine Ratio 19.2 (10-20); Calcium 9.4 mg/dl (8.6-10.3); Creatinine Clr Calc Pharmacy 54.6 ml/min; Est GFR (African American) 84.4 ml/min; Est GFR (Non-African American) 72.8 ml/min; Potassium 4.4 mmol/L (3.5-5.1)
--- NOTE | 2024-05-25 08:15 | Hospitalist Progress Note ---
Date of Service May 25, 2024 Assessment & Plan (1) Status post lumbar spinal fusion: Plan: s/pL umbar decompression bilateral medial facetectomies and foraminotomies L3-L4 L4-5. #2 posterior spinal fusion L4-L5. #3 placed posterior instrumentation L4-L5. #4 interbody fusion L4-L5 #5 placement of Spira 13 x 26 mm cage x 2 at L4-5 per #6 placement locally harvested morselized autograft posterior gutters. #7 placement for final sponge combined with Koros in the posterior lateral gutters and os design bone graft in the interbody space. #8 placement of versa wrap over the exposed dura. with Dr Buckner on 05/24 EBL 150cc WBC 10.8k, reactive from surgery/steroids. Hgb 13.1--> 11.0, acute blood loss anemia from surgery as well as dilutional aspect from IVF suspected. VSS w/ BP 115/61, HR 70s, 97% on RA Post-operative management per primary service. Hx nonischemic cardiomyopathy with EF 40-45% and IVF changed to total 1L. Home aspirin resumed PM 9 DOING GREAT TODAY, ambulating in the room, leg symptoms MUCH improved but has been ambulating without cane or walker due to feeling so well and did encourage while in the hospital and at least short term to use to ensure stable and prevent any fall/injury FOSTER output decreasing per patient. Asymptomatic w/ hgb 11.0. Was given AM coreg but losartan on hold and likely will monitor BP for today/resume in AM. Pref for coreg over losartan to prevent rebound tachycardia and maintain HR control Monitor exam on repeat but suspect able to dc next 24-48 hours per primary pending FOSTER output Please call with any questions/concerns. Will follow up re BP and resumption of home losartan (2) History of hypertension: Plan: BP 95/54 post-operatively however did take AM doses coreg and losartan prior to surgery along with effects of anesthesia Coreg w/ hold parameters, did hold dose last evening BP 115/61 this morning with stable renal function and if asymptomatic with BP can consider resuming losartan later today as stable renal function and not symptomatic however will place to resume AM 9/8 to allow her to settle but can resume later today if needing for BP control given pain significantly improved (3) CAD (coronary artery disease): Plan: Continues on ASA (resumed post-op), coreg. Remains on crestor No CP reported. Monitor (4) Nonischemic cardiomyopathy: Plan: IVF timed for 1L as above given mild reduced LVEF and does not appear to be volume overloaded at this time Monitor (5) Neurogenic claudication due to lumbar spinal stenosis: Plan: SIGNIFICANT IMPROVEMENT in symptoms to her legs (particiularly the right which was causing most of her issues) since surgery Post op management per primary as outlined above Plan Thank you for allowing hospitalist service to participate in the care of Mrs Leach. Hospitalist service will follow along in AM to check BP/resume losartan but if remaining stable likely can sign off after tomorrow if remaining inpatient for FOSTER output monitoring but otherwise stable. Please call with any questions/concerns. Admission and Anticipated Discharge Date Admission Date: May 24, 2024 Supervising Physician Co-Signing Physician Notes The patient was not seen by me. The chart was reviewed. Case discussed with ABDI White. Agree with assessment and plan Subjective Evaluated this morning, sitting up in recliner watching something on her [employer] tablet. Pain MUCH improved, VERY thankful for Dr Buckner's surgery. BM yesterday prior to surgery and is passing gas. No chung with surgery and reports ambulating to the bathroom to urinate without a cane or walker. While discussed happy symptoms improved significantly would encourage use of walker to ensure stability while in the hospital to prevent falls with hard/slippery floors. No CP/SOB, lightheaded/dizziness with ambulation. FOSTER output being monitored and patient reports output has slowed. Dressing looks great, some mild incisional tenderness but no shadowing on dressing. Anticipating monitoring FOSTER output and removal when deemed ok by Dr Buckner but possible dc in next 1-2 days pending progress. Discussed resuming losartan given no symptoms, however will resume for tomorrow to ensure no drops as did receive her coreg this morning. Questions/concerns addressed at this time. Physical Exam Physical Exam: General: 78yo female sitting up in recliner chair reading on tablet, NAD HEENT; head atraumatic, normocephalic, mmm trachea midline Resp: even/unlabored, no w/c/r, on room air CV: RRR, rates 70s, no significant mrg, no pitting edema/calf tenderness GI: +BS, soft/NT no chung MSK/Neuro: strength to b/l LE intact/equal, pulses present, good dorsiflexion/plantar flexion dressing to lumbar spine c/d/i, no shadowing, min/mild tenderness around incision appropriately, FOSTER w/ about 30-40cc serosanguineous drainage not confused, no slurred speech, answering questions appropriately Psych: AOx3, cooperative and pleasant with exam Results & Data Results & Data Vital Signs (Past 12 Hours) Vital Signs Temp Pulse Pulse Resp BP BP Pulse Ox 05/25/24 07:50 36.7 C 70 18 115/61 97 05/25/24 04:06 36.3 C L 57 L 16 127/69 95 05/24/24 23:12 36.9 C 61 14 96/48 L 94 05/24/24 21:27 69 101/57 L O2 Del Method 05/25/24 07:50 Room Air 05/25/24 04:06 Room Air 05/24/24 23:12 Room Air 05/24/24 21:27 Laboratory Results 05/25/24 Range/Units 06:07 WBC 10.83 H (4.8-10.8) K/ul RBC 3.60 L (4.20-5.40) M/uL Hgb 11.0 L (12.0-16.0) g/dl Hct 32.4 L (37.0-47.0) % MCV 90.0 (80.0-100.0) fL MCH 30.6 (25.0-34.0) pg MCHC 34.0 (32.0-36.0) g/dL RDW Std Deviation 40.8 (36.4-46.3) fL RDW Coeff of Priti 12.4 (11.5-14.5) % Plt Count 160 (130-400) K/uL MPV 10.2 (9.4-12.4) fL Immature Gran % (Auto) 0.5 % Neut % (Auto) 88.8 % Lymph % (Auto) 5.5 % [place] % (Auto) 5.1 % Eos % (Auto) 0.0 % Baso % (Auto) 0.1 % Neut # (Auto) 9.62 H (1.40-6.50) K/uL Lymph # (Auto) 0.60 L (1.20-3.40) K/uL [place] # (Auto) 0.55 (0.11-0.59) K/uL Eos # (Auto) 0.00 (0.00-0.50) K/uL Baso # (Auto) 0.01 (0.00-0.20) K/uL Immature Gran # (Auto) 0.05 (0.01-0.20) K/uL Sodium 138 (136-145) mmol/L Potassium 4.4 (3.5-5.1) mmol/L Chloride 106 (98-107) mmol/L Carbon Dioxide 26 (21-32) mmol/L Anion Gap 6 (3-11) BUN 15 (6-23) mg/dl Creatinine 0.78 (0.6-1.2) mg/dl Est Cr Clr Drug Dosing 54.6 ml/min Est GFR ( Amer) 84.4 ml/min Est GFR (Non-Af Amer) 72.8 ml/min BUN/Creatinine Ratio 19.2 (10-20) Glucose 130 H (70-99(Fasting)) mg/dl Calcium 9.4 (8.6-10.3) mg/dl PG Care Time/CCT Total # of Minutes Spent Total Time Spent with Patient: Total time spent is greater than 50% in coordination of care (as documented) at patient's floor/unit and/or counseling patient: Coding Level of Care Code 15656 SUB INP/OBS CARE 2/35MIN Diagnoses Status post lumbar spinal fusion Z98.1 History of hypertension Z86.79 Coronary artery disease involving cherokee coronary artery of cherokee heart without angina pectoris I25.10 Associated angina: without angina Coronary Disease-Associated Artery/Lesion type: [place]rokee artery [place] vs. transplanted heart: cherokee heart Nonischemic cardiomyopathy I42.8 Neurogenic claudication due to lumbar spinal stenosis M48.062 (3) CAD (coronary artery disease) Associated angina: without angina Coronary Disease-Associated Artery/Lesion type: [place]rokee artery [place] vs. transplanted heart: cherokee heart Qualified Code(s): I25.10 - Atherosclerotic heart disease of cherokee coronary artery without angina pectoris
[2024-05-25] MEDS: DULoxetine HCL 30 MG CAP PO SCH (08:29)
[2024-05-25] MEDS: ROSUVASTATIN CALCIUM 20 MG TAB PO SCH (08:30)
[2024-05-25] MEDS: dexAMETHasone 6 MG in SYRINGE 0 ML IV SCH (08:30)
[2024-05-25] MEDS: carvediloL 25 MG TAB PO SCH (08:30)
--- NOTE | 2024-05-25 08:51 | Orthopedic Progress Note ---
Date of Service May 25, 2024 Assessment & Plan (1) Neurogenic claudication due to lumbar spinal stenosis: Plan: At this time we will continue with physical therapy monitor her FOSTER output anticipate discharge home the next few days. Admission and Anticipated Discharge Date Admission Date: May 24, 2024 Subjective Back pain controlled leg symptoms markedly improved Physical Exam Physical Exam: Patient is currently in bed. She is comfortable. Is constricted testing. Results & Data Vital Signs (Past 12 Hours) Vital Signs Temp Pulse Pulse Resp BP BP Pulse Ox 05/25/24 07:50 36.7 C 70 18 115/61 97 05/25/24 04:06 36.3 C L 57 L 16 127/69 95 05/24/24 23:12 36.9 C 61 14 96/48 L 94 05/24/24 21:27 69 101/57 L O2 Del Method 05/25/24 07:50 Room Air 05/25/24 04:06 Room Air 05/24/24 23:12 Room Air 05/24/24 21:27
[2024-05-26 07:15] VITALS: BP 114/56; PULSE 68; RESP 16; TEMP 98.1; O2SAT 95
--- NOTE | 2024-05-26 08:02 | Hospitalist Progress Note ---
Date of Service May 26, 2024 Assessment & Plan (1) Status post lumbar spinal fusion: Plan: s/pL umbar decompression bilateral medial facetectomies and foraminotomies L3-L4 L4-5. #2 posterior spinal fusion L4-L5. #3 placed posterior instrumentation L4-L5. #4 interbody fusion L4-L5 #5 placement of Spira 13 x 26 mm cage x 2 at L4-5 per #6 placement locally harvested morselized autograft posterior gutters. #7 placement for final sponge combined with Koros in the posterior lateral gutters and os design bone graft in the interbody space. #8 placement of versa wrap over the exposed dura. with Dr Buckner on 05/24 EBL 150cc WBC 10.8k, reactive from surgery/steroids. Afebrile Hgb 13.1--> 11.0, acute blood loss anemia from surgery/dilutional aspect from IVF suspected. EBL was 150cc and FOSTER output 335cc, decreased now to 60cc--> 40cc. Drain management/post op management per primary service Coreg continued but losartan remains on hold for now, BP 114/56 and asymptomatic but discussed monitoring BP in AM (or at home if dc) and can resume if SBP >120 and feeling well/no symptoms Patient doing EXCELLENT today, eating/drinking no issues, pain WELL controlled with tylenol alone and moving her bowels. Message to primary service can dc patient today if felt ok by primary service given exam/patient desires discharge if ok w/ Dr Buckner. Will chart check in AM if remaining inpatient about resumption of losartan however will sign off at this time otherwise. Please call hospital service with any questions/concerns. (2) History of hypertension: Plan: BP 95/54 post-operatively however did take AM doses coreg and losartan prior to surgery, along w/ effects of anesthesia Coreg continued w/ hold parameters to prevent rebound tachycardia, losartan on hold BP stable 114/56, asymptomatic as above but allowing to normalize and as discussed with patient if dc today to monitor BP and can resume if SBP stable on repeat BP cuff at home without symptoms but would hold off resuming until SBP >120 and should continue coreg BID. HRs remaining stable Plans likely resume 05/27 as discussed (3) CAD (coronary artery disease): Plan: Continues on ASA (resumed post-op), coreg. Remains on crestor No CP reported. Monitor (4) Nonischemic cardiomyopathy: Plan: Does not appear to be volume overloaded at this time (5) Neurogenic claudication due to lumbar spinal stenosis: Plan: SIGNIFICANT IMPROVEMENT in symptoms to her legs (particularly the right which was causing most of her issues) since surgery Post op management per primary as outlined above Plan Thank you for allowing hospitalist service to participate in the care of Mrs Leach. Hospitalist service can chart check in AM if remaining inpatient but doing well/suspect able to discharge today but will defer to primary once seen. Please call with any questions/concerns. Admission and Anticipated Discharge Date Admission Date: May 24, 2024 Supervising Physician Co-Signing Physician Notes The patient was not seen by me. The chart was reviewed. Case discussed with ABDI White. Agree with assessment and plan Subjective EValuated this morning, sitting up in bed. Pain under EXCELLENT control, only using tylenol recently. Passing gas, moving bowels. No lightheadedness/dizziness, CP/SOB. BP borderline and discussed as she has BP cuff at home in event for possible dc today as doing so well/FOSTER output decreased to monitor her BP and can resume tomorrow if SBP >120 and not having any symptoms but otherwise I will check chart to resume in AM if remains in patient. Has not yet seen Dr Buckner but worked with therapy and doing well, is trying to be better about using walker while here but is doing so well that can dc from medicine standpoint if ok w/ primary. Questions/concerns addressed at this time. Physical Exam Physical Exam: General: 78yo female sitting up in bed on her tablet, looks great, NAD HEENT; head atraumatic, normocephalic, mmm trachea midline Resp: even/unlabored, no w/c/r, on room air CV: RRR, rates 60- 70s, no significant mrg, no pitting edema/calf tenderness GI: +BS, soft/NT no chung MSK/Neuro: strength to b/l LE intact/equal, pulses present, good dorsiflexion/plantar flexion dressing to lumbar spine c/d/i, no shadowing, min/mild tenderness around incision appropriately, FOSTER w/ decreased output answering questions appropriately, no slurred speech b/l hand numbness since her ACDF unchanged but strength equal bilaterally Psych: AOx3, cooperative and pleasant with exam Results & Data Results & Data Vital Signs (Past 12 Hours) Vital Signs Temp Pulse Resp BP Pulse Ox O2 Del Method 05/26/24 07:15 36.7 C 68 16 114/56 L 95 Room Air PG Care Time/CCT Total # of Minutes Spent Total Time Spent with Patient: Total time spent is greater than 50% in coordination of care (as documented) at patient's floor/unit and/or counseling patient: Coding Level of Care Code 61239 SUB INP/OBS CARE 2/35MIN Diagnoses Status post lumbar spinal fusion Z98.1 History of hypertension Z86.79 Coronary artery disease involving [place] coronary artery of [place] heart without angina pectoris I25.10 Associated angina: without angina Coronary Disease-Associated Artery/Lesion type: [place] artery [place] vs. transplanted heart: [place] heart Nonischemic cardiomyopathy I42.8 Neurogenic claudication due to lumbar spinal stenosis M48.062 (3) CAD (coronary artery disease) Associated angina: without angina Coronary Disease-Associated Artery/Lesion type: [place] artery [place] vs. transplanted heart: [place] heart Qualified Code(s): I25.10 - Atherosclerotic heart disease of [place] coronary artery without angina pectoris
[2024-05-26] MEDS: LOSARTAN POTASSIUM 50 MG TAB PO SCH (08:04)
--- NOTE | 2024-05-26 10:19 | Discharge Summary ---
Date of Service May 26, 2024 Principal Diagnosis Lumbar spinal stenosis with neurogenic claudication Discharge Data Allergies Allergy/AdvReac Type Severity Reaction Status Date / Time adhesive tape AdvReac Mild Rash Verified 05/24/24 10:14 Consultations 05/24/24 15:08 Consult Hospitalist Routine Procedures Performed Operation Date: 05/24/24 11:15 Actual Procedures p L4-L5 Lumbar Decompression and Fusion, Spinal Cord Monitoring(Not Applicable) - Clarence Buckner DO Ordered Studies 05/24/24 07:00 FL lumbar spine 2-3V Routine Hospital Course (1) Neurogenic claudication due to lumbar spinal stenosis: Patient underwent lumbar decompression fusion tolerated as well as taken to orthopedic for postoperative. Post ablation progressed appropriately. FOSTER drain decreasing well. Excellent active test. Pain well-controlled. Subsidy discharged home. Discharge orders instructions from the chart for further view. Total Time Total Time Spent Total Time Spent (In Minutes): 20 minutes Discharge Plan Discharge Items Patient Disposition: Home - Self-Care Reason For Visit: POSTOP Discharge Diagnosis: Lumbar spinal stenosis with spondylolisthesis and neurogenic claudication Activity: As commented below Non-emergency contact: Primary Care Provider Call non-emergency contact if: you have any medication questions Follow-up/Referrals: Clau Carroll CRNP [Primary Care Provider] - 06/03/24 10:00 am Diet: Regular Addtl Attending Provider Instructions: ACTIVITY RECOMMENDATIONS: SELF CARE INSTRUCTIONS AFTER THORACIC/LUMBAR FUSIONS 1. You may walk to your tolerance. It is good exercise for your legs and back. Expect some back and intermittent leg aches and pains. 2. You may perform "counter-top" level activities (make a sandwich, haroon with a project, etc.). 3. No bending or lifting of more than 10 pounds or back twisting of any nature (roll like a log when turning in bed). 4. You may ride in a car for 20-30 minutes at a time. No driving until after your first visit with your doctor. 5. Frequent changes of position and restricting sitting to 30 minutes at a time will help limit the amount of back spasms and stiffness you may experience. 6. You may discontinue the use of ambulatory aids (cane, crutches, etc.) once your strength and confidence allow. 7. You may field control inspector the shower and let water strike your incision when you arrive home at least once daily. Do not take a tub bath, sit in a hot tub or go into a swimming pool until after your first recheck in the office. SPECIAL CARE INSTRUCTIONS: VERY IMPORTANT TO READ AND REVIEW A. Your surgical incision has been closed with a cosmetic suture under the skin that will dissolve in about 6 weeks. In 14 days, you can use a pair of clean scissors and cut the suture that is left outside of the skin at the ends of your incision. 1. The small skin tapes can be removed 7 days after surgery if they have not fallen off by that point. 2. You may keep the wound open to air as much as possible to promote healing after post-op day number 5 unless told otherwise by your doctor. 3. If you think the wound looks like it is becoming infected (redness or wor sening drainage) and/or you are experiencing fever, chill or worsening back pain and muscle spasms, contact the office so that we may evaluate you as soon as possible. B. Complications are uncommon, but please contact us if you have any signs or symptoms of: 1. wound infection (fever higher than 102.5 degrees F, redness, separation of wound, drainage, or increasing pain from the incision) 2. blood clots in legs (pain, swelling, redness and warmth in legs) 3. urinary tract infection (fever higher than 102.5 degrees F, burning upon urination or increased frequency of urination) 4. nerve problems (inability to walk on your toes or heels, numbness, loss of bowel or bladder control) 5. any other symptoms that concern you C. Please call the office at if you have any concerns or questions about your operation or recovery. D. No smoking! Smoking drastically decreases the chance of a solid fusion. E. Do not take any anti-inflammatory medications (Indocin, Advil, Motrin, Aspirin, Naprosyn, etc.) as these may inhibit the chance of a solid fusion. Tylenol is okay to take for pain. MANAGING PAIN AFTER SPINAL SURGERY 1. Narcotic medication is intended for short-term use and will be provided for surgical pain. Surgical pain usually lasts for a period of 4-6 weeks. Narcotic medication includes Percocet, Vicodin, Darvocet, Tylenol #3 or Lortab. 2. Longer-term pain is more appropriately treated with non-narcotic medication such as Tylenol ES. 3. Muscle spasm is not appropriately treated with narcotics. Muscle relaxers such as Soma, Flexeril or Skelaxin can be used along with Tylenol ES. 4. Remember that we all live with some "aches and pains". This is not unusual or uncommon after an injury or as we get older. a. Back pain is expected and may include muscle spasms for 4 to 6 weeks after surgery. The pain should gradually improve. If the pain worsens for no apparent reason, please contact the office. b. Intermittent leg pain may also be experienced and should not be concerned about unless it worsens for no apparent reason. If so, please contact the office. 5. We will provide appropriate medication within the normal guidelines of their prescribed use. We will also be very cautious and aware of potential abuse and extended duration of patients' medication needs. a. Pain medications are for your comfort and to assist with sleep and rest so that the tissue can heal. They are not provided in order to return to normal activity and should not be used through the day. To do so or worsening pain at night can result from ongoing tissue damage and development of tolerance to the prescribed medicine. 6. Please allow 2-3 days to process refills. Prescriptions will not be mailed but must be picked up at the office. FOLLOW UP VISIT: Keep your scheduled follow-up appointment. Any questions, please call the office at . Pending Studies at Discharge: No Stand-Alone Forms: [facility], Smoking Cessation Medications and DC Order Prescriptions: New tramadol 50 mg tablet 50 mg PO Q6H PRN (Reason: pain, moderate) Qty: 30 0RF oxycodone 5 mg tablet 5 mg PO Q6H PRN (Reason: pain) Qty: 20 0RF Continued rosuvastatin 20 mg tablet 20 mg PO QAM Qty: 90 1RF carvedilol 25 mg tablet 25 mg PO BID Qty: 180 3RF Rx Instructions: must administer with a meal/food acetaminophen [Tylenol Extra Strength] 500 mg tablet 500 mg PO Q6H PRN (Reason: Pain) aspirin 81 mg capsule 81 mg PO BID Hold Instructions: Resume on 06/23/23. duloxetine 30 mg capsule,delayed release(DR/EC) 30 mg PO QAM Qty: 90 1RF gabapentin 300 mg capsule 300 mg PO BID Qty: 60 2RF losartan 100 mg tablet 100 mg PO QAM Vitamin D (with calcium) 77-400 mg-unit Tablet 500 tab PO BID Discharge Orders: Discharge Order (Routine); Ordered 05/26/24 Ordered By: Clarence Buckner Admission Data Admit Date/Time: 05/24/24 13:19 Attending Provider: Clarence Buckner Admit Provider: Clarence Buckner Primary Care Provider: Clau Carroll Other Providers: Salomón Hendrickson
== END 2024-05-26 13:47 | disposition home or self-care (01) | DRG 454 ==
LOC: ASU 09:18 → 3E 13:19